=== PATIENT | female | born 1995 | race Caucasian/White ===

== ENCOUNTER 2023-10-24 19:43 | Emergency (ER) | payer OTHER ==
[~2023-10-24] VITALS: Ht 172.7 cm; Wt 93.0 kg
[2023-10-24 20:06] LABS: BILIRUBIN, URINE NEGATIVE (negative); BLOOD/HGB, URINE LARGE (Negative); KETONE, URINE NEGATIVE (Negative); LEUK ESTERASE, URINE NEGATIVE (negative); NITRITE, URINE NEGATIVE (negative)
[2023-10-24 20:11] LABS: EPITHELIAL CELLS, URINE SQUAMOUS 1+ /lpf (0-1+)
[2023-10-24 20:12] LABS: BACTERIA, URINE RARE /hpf (negative); CASTS, URINE NONE SEEN \\lpf; CRYSTALS, URINE NONE SEEN (0-1+); RED BLOOD CELLS, URINE >50 /hpf (0-5); REFLEX CULTURE, URINE No (No)
[2023-10-24 20:41] LABS: BASOPHILS 0.8 % (0-2); EOSINOPHILS 4.1 % (0-6); HEMATOCRIT 36.7 % (35.0-50.0); HEMOGLOBIN 12.6 g/dL (12.0-18.0); LYMPHOCYTES 25.2 % (24-44); MCH 31.5 (27-36); MCHC 34.3 g/dl (30-36); MCV 91.8 fl (81-99); MONOCYTES 7.2 % (0-12); NEUTROPHILS 62.7 % (39-80); PLATELET COUNT 193 K/uL (140-440); RDW 13.8 (10.5-15.0)
[2023-10-24] MEDS ORDERED: SERTRALINE HCL100 MG PO (20:43)
[2023-10-24] MEDS ORDERED: ONE-A-DAY PREN1 EAC2 PO (20:43)
[2023-10-24 21:17] LABS: ALBUMIN 3.5 g/dL (3.4-5.0); ALBUMIN/GLOBULIN RATIO 1.17 (1.1-2.4); ANION GAP 11.5 (7-21); BILIRUBIN, TOTAL 0.4 ng/dL (0.2-1.0); BUN/CREATININE RATIO 15.27 (6.0-28.6); CALCIUM 8.6 mg/dL (8.5-10.1); CREATININE, SERUM 0.72 mg/dL (0.55-1.02); POTASSIUM 3.5 mmol/L (3.5-5.1); PROTEIN, TOTAL 6.5 g/dL (6.4-8.2)
[2023-10-24 21:23] VITALS: BP 128/71
== END 2023-10-24 21:24 | disposition home or self-care (01) ==
LOC: ED 19:43
PROVIDERS: Internal Medicine
DX: O20.8 Other hemorrhage in early pregnancy (principal); Z3A.13 13 weeks gestation of pregnancy; Z79.899 Other long term (current) drug therapy
CPT/HCPCS: 36415; 76801; 80053; 81001; 84702; 85025

== ENCOUNTER 2024-04-22 09:30 | Inpatient (IN) | payer BC ==
[~2024-04-22] VITALS: Ht 175.3 cm; Wt 114.8 kg
[~2024-04-22 09:30] MED LIST: ONE-A-DAY PREN1 EAC2 PO; SERTRALINE HCL100 MG PO
[2024-04-22 10:13] LABS: AMNISURE ROM TEST POSITIVE
[2024-04-22 11:24] LABS: HEMATOCRIT 38.5 % (35.0-50.0); HEMOGLOBIN 13.1 g/dL (12.0-18.0); MCH 31.1 (27-36); MCHC 34.1 g/dl (30-36); MCV 91.2 fl (81-99); RBC 4.22 M/ul (4.3-5.7); RDW 13.3 (10.5-15.0)
[2024-04-22] MEDS ORDERED: OXYTOCIN/DEXTROSE 5% 20 UNITS/100 ML BAG IV SCH ×2 (11:30→19:30)
[2024-04-22] MEDS ORDERED: MAGNESIUM HYDROXIDE/AL HYDROX 30 ML CUP PO PRN (11:30)
[2024-04-22] MEDS ORDERED: CALCIUM CARBONATE 500 MG CHEW PO PRN (11:30)
[2024-04-22] MEDS ORDERED: PENICILLIN G POTASSIUM 5 MUNITS/110 ML PIGGYBACK IV ONE (11:45)
[2024-04-22] MEDS ORDERED: LACTATED RINGER'S 1,000 ML IV PRN (11:45)
[2024-04-22] MEDS ORDERED: LACTATED RINGER'S 1,000 ML IV SCH (11:45)
[2024-04-22 11:49] LABS: AMPHETAMINES, URINE NEGATIVE (NEGATIVE); BARBITURATES, URINE NEGATIVE (NEGATIVE); BENZODIAZEPINE, URINE NEGATIVE (NEGATIVE); BUPRENORPHINE, URINE NEGATIVE (NEGATIVE); CANNABINOID, URINE NEGATIVE (NEGATIVE); COCAINE, URINE NEGATIVE (NEGATIVE); ECSTASY, URINE NEGATIVE (NEGATIVE); FENTANYL, URINE NEGATIVE (NEGATIVE); METHADONE, URINE NEGATIVE (NEGATIVE); OPIATES, URINE NEGATIVE (NEGATIVE); OXYCODONE, URINE NEGATIVE (NEGATIVE); PHENCYCLIDINE, URINE NEGATIVE (NEGATIVE)
[2024-04-22] MEDS ORDERED: miSOPROStoL 200 MCG TAB SL SCH (12:00)
[2024-04-22 12:04] LABS: ABO O; ANTIBODY SCREEN NEGATIVE; RH POSITIVE
[2024-04-22] MEDS ORDERED: miSOPROStoL 25 MCG TAB SL SCH (12:30)
[2024-04-22 14:40] VITALS: BP 132/82
[2024-04-22] MEDS ORDERED: PENICILLIN G POTASSIUM 2.5 MUNITS in DEXTROSE 5% 100 ML IV SCH (15:45)
[2024-04-22 15:56] LABS: HEMATOCRIT 40.6 % (35.0-50.0); HEMOGLOBIN 13.8 g/dL (12.0-18.0); MCH 31.5 (27-36); MCV 92.8 fl (81-99); RBC 4.37 M/ul (4.3-5.7); RDW 13.9 (10.5-15.0)
[2024-04-22 16:13] LABS: ALBUMIN/GLOBULIN RATIO 0.75 (1.1-2.4); ANION GAP 17.1 (7-21); BILIRUBIN, TOTAL 0.7 ng/dL (0.2-1.0); BUN/CREATININE RATIO 11.25 (6.0-28.6); CALCIUM 9.5 mg/dL (8.5-10.1); CREATININE, SERUM 0.8 mg/dL (0.55-1.02); POTASSIUM 4.1 mmol/L (3.5-5.1)
[2024-04-22] MEDS ORDERED: LACTATED RINGER'S 500 ML IV PRN (16:30)
[2024-04-22] MEDS ORDERED: ePHEDrine sulfate 5 MG/ML SYRINGE IV PRN (16:30)
[2024-04-22] MEDS ORDERED: LACTATED RINGER'S 2,000 ML IV ONE (16:30)
[2024-04-22] MEDS ORDERED: ROPIVACAINE 0.2% 200 ML BAG EPIDURAL SCH (16:30)
[2024-04-22] MEDS ORDERED: ondansetron HCL 4 MG/2 ML VIAL IV PRN (21:45)
[2024-04-22] MEDS ORDERED: OXYTOCIN/0.9 % SODIUM CHLORIDE 500 ML IV SCH (21:45)
[2024-04-23] MEDS ORDERED: PENICILLIN G POTASSIUM 5 MUNITS/10 ML VIAL ONE (00:27)
[2024-04-23] MEDS ORDERED: CALCIUM CARBONATE 500 MG CHEW PO PRN (05:45)
[2024-04-23] MEDS ORDERED: OXYCODONE HCL 5 MG TAB PO PRN (05:45)
[2024-04-23] MEDS ORDERED: LIDOCAINE 2% VISCOUS 6 ML SYR TOP ONE ×2 (05:45)
[2024-04-23] MEDS ORDERED: OXYCODONE/APAP 5/325 TAB PO PRN (05:45)
[2024-04-23] MEDS ORDERED: HYDROCORTISONE ACETATE 25 MG SUPP PR PRN (05:45)
[2024-04-23] MEDS ORDERED: BENZOCAINE 60 ML AEROSOL TOP PRN (05:45)
[2024-04-23] MEDS ORDERED: MAGNESIUM HYDROXIDE/AL HYDROX 30 ML CUP PO PRN (05:45)
[2024-04-23] MEDS ORDERED: HYDROCODONE/ACETA 5/325 TAB PO PRN (05:45)
[2024-04-23] MEDS ORDERED: IBUPROFEN 600 MG TAB PO PRN (05:45)
[2024-04-23] MEDS ORDERED: MAGNESIUM HYDROXIDE 30 ML UDC PO PRN (05:45)
[2024-04-23] MEDS ORDERED: WITCH HAZEL/GLYCERIN 1 EA PAD TOP PRN (05:45)
[2024-04-23] MEDS ORDERED: ACETAMINOPHEN 325 MG TAB PO PRN (05:45)
[2024-04-23] MEDS ORDERED: OXYTOCIN/0.9 % SODIUM CHLORIDE 500 ML IV SCH (05:45)
[2024-04-23] MEDS ORDERED: SENNOSIDES/DOCUSATE 1 EA TAB PO SCH (09:00)
[2024-04-23] MEDS ORDERED: MAGNESIUM OXIDE 400 MG TABLET PO ONE (22:30)
== END 2024-04-25 11:50 | disposition home or self-care (01) | DRG 807 ==
LOC: FBCO 09:30 → FBC 10:28
PROVIDERS: ADMIT Student in an Organized Health Care Education/Training Program; ATTEND Student in an Organized Health Care Education/Training Program
PROC: 10E0XZZ Delivery of Products of Conception, External Approach (ICD-10-PCS; principal; 2024-04-23)
PROC: 0HQ9XZZ Repair Perineum Skin, External Approach (ICD-10-PCS; 2024-04-23)
PROC: 00HU33Z Insertion of Infusion Device into Spinal Canal, Percutaneous Approach (ICD-10-PCS; 2024-04-23)
PROC: 3E0R3BZ Introduction of Anesthetic Agent into Spinal Canal, Percutaneous Approach (ICD-10-PCS; 2024-04-23)
DX: O99.824 Streptococcus B carrier state complicating childbirth (principal); Z37.0 Single live birth; Z3A.39 39 weeks gestation of pregnancy; O70.0 First degree perineal laceration during delivery; O99.344 Other mental disorders complicating childbirth; F32.A Depression, unspecified; F41.9 Anxiety disorder, unspecified; Z91.09 Other allergy status, other than to drugs and biological substances
CPT/HCPCS: 01960; 36415; 59025; 80053; 80307; 82565; 82570; 83615; 84112; 84156; 84550; 85027; 86850; 86900; 86901; A9270; G0463; J2405; J2540; J7121